=== PATIENT | female | born 1975 | race African-American/Black ===

== ENCOUNTER 2017-01-07 09:36 | Outpatient (CLI) | payer MEDICARE, MEDICAID ==
[2017-01-07 11:14] LABS: BASOPHILS % (AUTO) 0.6 % (0.0-2.0); EOSINOPHILS % (AUTO) 0.7 % (0.0-3.0); LYMPHOCYTES % (AUTO) 30.7 % (20.0-45.0); MEAN CORPUSCULAR HEMOGLOBIN 33.3 PG (27.0-31.0); MEAN CORPUSCULAR HGB CONC 33.1 G/DL (32.0-36.0); MEAN CORPUSCULAR VOLUME 101 FL (80-99); MONOCYTES % (AUTO) 5.9 % (1.0-10.0); NEUTROPHILS % (AUTO) 62.1 % (45.0-75.0); PLATELET COUNT 143 K/UL (150-450); RED BLOOD COUNT 3.76 M/UL (4.20-5.40); RED CELL DISTRIBUTION WIDTH 12.9 % (11.6-14.8); WHITE BLOOD COUNT 8.1 K/UL (4.8-10.8)
[2017-01-07 11:55] LABS: ALANINE AMINOTRANSFERASE 25 U/L (12-78); ALBUMIN/GLOBULIN RATIO 0.9 (1.0-2.7); ANION GAP 7 mmol/L (5-15); ASPARTATE AMINO TRANSFERASE 21 U/L (15-37); CARBON DIOXIDE 27 MMOL/L (21-32); CHLORIDE 103 MMOL/L (98-107); CREATININE 0.7 MG/DL (0.55-1.30); GLOMERULAR FILTRATION RATE > 60 mL/min (>60); POTASSIUM 4.1 MMOL/L (3.5-5.1); SODIUM 137 MMOL/L (136-145); TOTAL PROTEIN 7.8 G/DL (6.4-8.2); VALPROIC ACID 91 MCG/ML (50-100)
[2017-01-12 13:00] LABS: VITAMIN D 25-OH TOTAL 5.1 ng/mL (.)
== END 2017-01-07 11:36 | disposition home or self-care (01) ==
LOC: LAB 09:36
DX: G40.909 Epilepsy, unspecified, not intractable, without status epilepticus (principal)
CPT/HCPCS: 36415; 80053; 80164; 80184; 82306; 82607; 85025

== ENCOUNTER 2017-06-25 08:58 | Outpatient (CLI) | payer MEDICARE, OTHER ==
[2017-06-25 10:41] LABS: BASOPHILS % (AUTO) 1.3 % (0.0-2.0); EOSINOPHILS % (AUTO) 1.1 % (0.0-3.0); HEMOGLOBIN 12.4 G/DL (12.0-16.0); LYMPHOCYTES % (AUTO) 36.9 % (20.0-45.0); MEAN CORPUSCULAR VOLUME 92 FL (80-99); MONOCYTES % (AUTO) 8.1 % (1.0-10.0); NEUTROPHILS % (AUTO) 52.7 % (45.0-75.0); PLATELET COUNT 169 K/UL (150-450); RED BLOOD COUNT 4.11 M/UL (4.20-5.40); RED CELL DISTRIBUTION WIDTH 15.5 % (11.6-14.8); WHITE BLOOD COUNT 7.2 K/UL (4.8-10.8)
[2017-06-25 11:16] LABS: ALANINE AMINOTRANSFERASE 29 U/L (12-78); ALBUMIN 3.6 G/DL (3.4-5.0); ALBUMIN/GLOBULIN RATIO 0.9 (1.0-2.7); ALKALINE PHOSPHATASE 64 U/L (46-116); ANION GAP 6 mmol/L (5-15); ASPARTATE AMINO TRANSFERASE 27 U/L (15-37); BILIRUBIN,DIRECT < 0.1 MG/DL (0.0-0.3); BILIRUBIN,TOTAL 0.2 MG/DL (0.2-1.0); BLOOD UREA NITROGEN 10 mg/dL (7-18); CARBON DIOXIDE 31 MMOL/L (21-32); CHLORIDE 102 MMOL/L (98-107); CREATININE 0.5 MG/DL (0.55-1.30); POTASSIUM 4.3 MMOL/L (3.5-5.1); SODIUM 139 MMOL/L (136-145)
== END 2017-06-25 10:58 | disposition home or self-care (01) ==
LOC: LAB 08:58
DX: G40.909 Epilepsy, unspecified, not intractable, without status epilepticus (principal)
CPT/HCPCS: 36415; 80053; 80164; 80184; 82248; 82306; 82607; 84436; 84439; 84443; 84481; 85025

== ENCOUNTER 2018-01-01 06:53 | Outpatient (CLI) | payer MEDICARE, OTHER ==
[2018-01-01 11:20] LABS: BASOPHILS % (AUTO) 1.2 % (0.0-2.0); EOSINOPHILS % (AUTO) 1.9 % (0.0-3.0); HEMATOCRIT 35.5 % (37.0-47.0); HEMOGLOBIN 11.4 G/DL (12.0-16.0); LYMPHOCYTES % (AUTO) 33.7 % (20.0-45.0); MEAN CORPUSCULAR VOLUME 87 FL (80-99); NEUTROPHILS % (AUTO) 54.3 % (45.0-75.0); PLATELET COUNT 221 K/UL (150-450); RED BLOOD COUNT 4.09 M/UL (4.20-5.40); RED CELL DISTRIBUTION WIDTH 14.4 % (11.6-14.8); WHITE BLOOD COUNT 7.7 K/UL (4.8-10.8)
[2018-01-01 11:50] LABS: ALANINE AMINOTRANSFERASE 13 U/L (12-78); ALBUMIN 3.6 G/DL (3.4-5.0); ALBUMIN/GLOBULIN RATIO 0.7 (1.0-2.7); ALKALINE PHOSPHATASE 71 U/L (46-116); ANION GAP 9 mmol/L (5-15); ASPARTATE AMINO TRANSFERASE 16 U/L (15-37); BILIRUBIN,TOTAL < 0.1 MG/DL (0.2-1.0); BLOOD UREA NITROGEN 8 mg/dL (7-18); CALCIUM 9.1 MG/DL (8.5-10.1); CARBON DIOXIDE 26 MMOL/L (21-32); CHLORIDE 104 MMOL/L (98-107); CREATININE 0.6 MG/DL (0.55-1.30); POTASSIUM 4.1 MMOL/L (3.5-5.1); SODIUM 139 MMOL/L (136-145)
== END 2018-01-01 08:53 | disposition home or self-care (01) ==
LOC: LAB 06:53
DX: G40.909 Epilepsy, unspecified, not intractable, without status epilepticus (principal)
CPT/HCPCS: 36415; 80053; 80164; 80184; 82306; 82607; 84443; 85025

== ENCOUNTER 2018-03-23 10:07 | Emergency (ER) | payer MEDICARE, OTHER ==
[~2018-03-23] VITALS: Ht 152.4 cm; Wt 45.4 kg
--- NOTE | 2018-03-23 10:20 | NUR ---
ED Nurse Note: PT BROUGHT IN BY MOTHER VIA WHEELCHAIR FROM HOME. PT IS NONVERBAL WHICH IS BASELINE PER PT'S MOTHER. PT'S MOTHER STATES PT HAS FELT WARM THOUGH NO TEMPERATURE WAS TAKEN AT HOME. ORAL TEMP AT BEDSIDE: 99.6F. PT'S MOTHER ALSO STATES PT HAS BEEN MORE FATIGUED THAN NORMAL AND IS USUALLY MORE ACTIVE AT HOME.
--- NOTE | 2018-03-23 10:38 | Emergency Room Report ---
History of Present Illness General Chief Complaint: Fever Source: Caregiver Present Illness HPI 43-year-old femaleis nonverbal at baseline, wheelchair bound,and has developmental delay brought in by caregiver for subjective fever and fatigue noticed since yesterday, usually patient is more interactive, and now she seems have a scowl on her face. No temperatures were taken, but caregiver thinks that she just looks a little on comfortable and skin was warm. Allergies: Coded Allergies: No Known Allergies (Unverified , 03/23/18) Patient History Limited by: medical condition Past Medical History: see triage record Now: No Reviewed Nursing Documentation: PMH: Agreed; PSxH: Agreed Nursing Documentation-PMH Past Medical History: No History, Except For Hx Seizures: Yes Review of Systems All Other Systems: limited - Patient nonverbal Physical Exam Vital Signs Date Time Temp Pulse Resp B/P (MAP) Pulse Ox O2 Delivery O2 Flow Rate FiO2 03/23/18 10:15 99.7 109 22 124/77 99 Room Air Sp02 EP Interpretation: reviewed, normal General Appearance: no apparent distress, alert, non-toxic Head: normocephalic, atraumatic Eyes: bilateral eye normal inspection, bilateral eye PERRL, bilateral eye EOMI ENT: normal ENT inspection, moist mucus membranes Neck: normal inspection, full range of motion, supple, supple/symm/no masses Respiratory: chest non-tender, lungs clear, normal breath sounds, no rhonchi, no respiratory distress, no retraction, no accessory muscle use, chest symmetrical, palpation of chest normal Cardiovascular #1: normal peripheral pulses, regular rate, rhythm, no edema, no gallop, no JVD, no murmur, no rub Cardiovascular #2: 2+ radial (R), 2+ radial (L) Gastrointestinal: normal inspection, non tender, soft, no mass, no guarding, no rebound Rectal: deferred Genitourinary: normal inspection, no CVA tenderness Musculoskeletal: back normal, gait/station normal, normal range of motion, non- tender, no calf tenderness Neurologic: alert, responsive Psychiatric: mood/affect normal Skin: normal color, no rash, warm/dry, normal turgor Lymphatic: no adenopathy Medical Decision Making Diagnostic Impression: Primary Impression: Fever ER Course Patient sent in for subjective fever, but no fever here, labs, CT scan abdomen pelvis, urine, chest x-ray, all fairly unremarkable, patient with no obvious discomfort, will discharge home with PMD follow-up. Last Vital Signs Date Time Temp Pulse Resp B/P (MAP) Pulse Ox O2 Delivery O2 Flow Rate FiO2 03/23/18 10:15 99.7 109 22 124/77 99 Room Air Disposition: HOME, SELF-CARE Condition: Stable AVERY RILEY M.D Mar 23, 2018 10:38
[2018-03-23] MEDS ORDERED: LORazepam 1mg tab ORAL ONE (10:45)
[2018-03-23 10:47] VITALS: BP 117/81
--- NOTE | 2018-03-23 11:02 | NUR ---
ED Nurse Note: UNABLE TO DRAW BLOOD, CONTACTED FURNACE CONVERTER TO DRAW. NOTIFIED ANDRY KHAN
--- NOTE | 2018-03-23 11:30 | NUR ---
ED Nurse Note: PT TO CT VIA ANUPAMA.
[2018-03-23 11:34] LABS: EOSINOPHILS % (AUTO) 0.6 % (0.0-3.0); HEMATOCRIT 34.7 % (37.0-47.0); LYMPHOCYTES % (AUTO) 27.1 % (20.0-45.0); MEAN CORPUSCULAR VOLUME 88 FL (80-99); MONOCYTES % (AUTO) 7.9 % (1.0-10.0); NEUTROPHILS % (AUTO) 63.5 % (45.0-75.0); PLATELET COUNT 145 K/UL (150-450); RED BLOOD COUNT 3.93 M/UL (4.20-5.40); RED CELL DISTRIBUTION WIDTH 16.9 % (11.6-14.8); WHITE BLOOD COUNT 9.8 K/UL (4.8-10.8)
--- NOTE | 2018-03-23 11:35 | NUR ---
ED Nurse Note: Patient's mom - Apodaca Andrea / & TEL [phone]
[2018-03-23 11:40] LABS: ANION GAP 9 mmol/L (5-15); BLOOD UREA NITROGEN 5 mg/dL (7-18); CALCIUM 8.6 MG/DL (8.5-10.1); CARBON DIOXIDE 28 MMOL/L (21-32); CHLORIDE 103 MMOL/L (98-107); CREATININE 0.6 MG/DL (0.55-1.30); POTASSIUM 3.3 MMOL/L (3.5-5.1); SODIUM 140 MMOL/L (136-145)
--- NOTE | 2018-03-23 11:43 | NUR ---
ED Nurse Note: PT BACK FROM CT VIA ANUPAMA
[2018-03-23 11:45] LABS: ALANINE AMINOTRANSFERASE 43 U/L (12-78); ALBUMIN 3.4 G/DL (3.4-5.0); ALBUMIN/GLOBULIN RATIO 0.8 (1.0-2.7); ALKALINE PHOSPHATASE 68 U/L (46-116); ASPARTATE AMINO TRANSFERASE 25 U/L (15-37); BILIRUBIN,TOTAL 0.1 MG/DL (0.2-1.0)
--- NOTE | 2018-03-23 12:00 | NUR ---
ED Nurse Note: PER DR. RILEY, WILL CHANGE SERUM TO URINE.
--- NOTE | 2018-03-23 12:04 | Diagnostic Imaging Report ---
Indication: Dyspnea Comparison: 10/25/2008 A single view chest radiograph was obtained. Findings: There is a kyphosis and scoliosis of the thoracolumbar spine present. Heart size is within normal limits. Lung volumes are low bilaterally. No infiltrates are seen. IMPRESSION: No acute cardiopulmonary disease
[2018-03-23 12:09] LABS: APPEARANCE,URINE CLEAR; BILIRUBIN, URINE NEGATIVE (NEGATIVE); COLOR,URINE PALE YELLOW; GLUCOSE, URINE (UA) NEGATIVE (NEGATIVE); KETONES,URINE NEGATIVE (NEGATIVE); LEUKOCYTE ESTERASE ,URINE NEGATIVE (NEGATIVE); NITRITE,URINE NEGATIVE (NEGATIVE); PH,URINE 7 (4.5-8.0); PROTEIN,URINE NEGATIVE (NEGATIVE); UROBILINOGEN,URINE NORMAL MG/DL (0.0-1.0)
--- NOTE | 2018-03-23 12:41 | Diagnostic Imaging Report ---
Indication: Abdominal pain Technique: Continuous helical transaxial imaging of the abdomen and pelvis was obtained from the lung bases to the pubic symphysis. No intravenous contrast was administered. Coronal 2-D reformats were also obtained. Automatic Exposure Control was utilized. Total Dose length Product (DLP): 468.[address] Dose Index Volume (CTDIvol): 8.83 mGy Comparison: none Findings: The lung bases are clear. There is a moderate to severe scoliosis of the thoracolumbar spine convex to the right. Gallbladder is partially contracted. There is suggestion of small stones or sludge layering in the dependent part of the gallbladder. There is significant limitation on this examination due to the nonadministration of intravenous and oral contrast material and fact that the patient has a unique body habitus with very little intra-abdominal fat much like a pediatric patient. There is no obvious ascites or evidence of intra-abdominal/pelvic abscess. There is no evidence of bowel obstruction. The appendix is partially seen and appears probably normal. Uterus is present. There is moderate fecal impaction with formed stool distending the rectum. The bladder is unremarkable. There is no hydronephrosis or renal stones identified. 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 The left femoral head and neck are displaced superolaterally. This is chronic. This is associated with some redundancy of the joint capsule which appears moderately thick and expanded. There is a small joint effusion. IMPRESSION: No acute findings in the abdomen or pelvis identified. Limitations as discussed above. Severe kyphoscoliosis. 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 Moderate fecal impaction. Gallbladder sludge versus small stones. The CT scanner at [facility] is accredited by the [employer] and the scans are performed using dose optimization techniques as appropriate to a performed exam including Automatic Exposure control.
[2018-03-23] MEDS ORDERED: COLACE100 MG ORAL (13:23)
--- NOTE | 2018-03-23 13:50 | NUR ---
ED Nurse Note: PT'S MOTHER CALLED FOR DC. ETA 20 MINUTES.
--- NOTE | 2018-03-23 14:07 | NUR ---
ED Nurse Note: PT'S K: 3.3. AWARE. PT CLEARED FOR DC.
[2018-03-23 14:26] VITALS: BP 119/84
--- NOTE | 2018-03-23 14:26 | NUR ---
Ed Nurse Note: PT LAYING PEACEFULLY IN BED IN NAD. AOX4. MOTHER AT BEDSIDE. PRESCRIPTIONS AND DISCHARGE PAPERWORK EXPLAINED TO PT'S MOTHER. PT'S MOTHER VERBALIZES UNDERSTANDING AND ALL QUESTIONS WERE ANSWERED. PRESCRIPTIONS AND DISCHARGE PAPERWORK GIVEN TO PT'S MOTHER, IV AND ID WRISTBAND REMOVED. PT WHEELCHAIRED OUT OF ER WITH ALL BELONGINGS BY MOTHER.
== END 2018-03-23 14:26 | disposition home or self-care (01) ==
LOC: EMR 10:55
DX: R50.9 Fever, unspecified (principal); R10.9 Unspecified abdominal pain; R06.00 Dyspnea, unspecified
CPT/HCPCS: 36415; 71045; 74176; 80053; 81003; 81025; 83690; 84484; 85025; 85610; 85730; 96360; 99284

== ENCOUNTER 2018-05-09 14:10 | Inpatient (IN) | payer MEDICARE, OTHER ==
[~2018-05-09] VITALS: Ht 162.6 cm; Wt 40.8 kg
[~2018-05-09 14:10] MED LIST: COLACE100 MG ORAL
[2018-05-10] MEDS ORDERED: LEVOTHYROXINE75 MCG ORAL (10:16)
[2018-05-10] MEDS ORDERED: PHENOBARBITAL30 MG ORAL (10:16)
[2018-05-10] MEDS ORDERED: VITAMIN D250000 UNI1 ORAL (10:16)
[2018-05-10] MEDS ORDERED: DEPAKOTE250 MG PO (10:16)
--- NOTE | 2018-05-10 10:52 | NUR ---
NURSE NOTES: Patient is a direct admit. Patient arrived to unit at 1010 via own wheelchair. Patient is non-verbal. History obtained from mother at bedside. Patient assisted to bed. Mother took patient's clothes home, so patient has no belongings. Side rails are up X3. Side rails are padded. Bed is locked and in lowest position. Dr. Nair called for admission orders. New orders received and entered. Will continue to monitor.
[2018-05-10 11:54] LABS: BASOPHILS % (AUTO) 0.9 % (0.0-2.0); EOSINOPHILS % (AUTO) 0.4 % (0.0-3.0); HEMATOCRIT 34.6 % (37.0-47.0); HEMOGLOBIN 10.8 G/DL (12.0-16.0); LYMPHOCYTES % (AUTO) 33.5 % (20.0-45.0); MEAN CORPUSCULAR VOLUME 89 FL (80-99); MONOCYTES % (AUTO) 5.8 % (1.0-10.0); NEUTROPHILS % (AUTO) 59.4 % (45.0-75.0); PLATELET COUNT 175 K/UL (150-450); RED BLOOD COUNT 3.89 M/UL (4.20-5.40); RED CELL DISTRIBUTION WIDTH 16.9 % (11.6-14.8); WHITE BLOOD COUNT 8.7 K/UL (4.8-10.8)
[2018-05-10 12:00] VITALS: BP 111/58
[2018-05-10 12:29] LABS: ALANINE AMINOTRANSFERASE 31 U/L (12-78); ALBUMIN 3.4 G/DL (3.4-5.0); ALBUMIN/GLOBULIN RATIO 0.8 (1.0-2.7); ALKALINE PHOSPHATASE 57 U/L (46-116); ANION GAP 3 mmol/L (5-15); ASPARTATE AMINO TRANSFERASE 17 U/L (15-37); BILIRUBIN,TOTAL < 0.1 MG/DL (0.2-1.0); BLOOD UREA NITROGEN 10 mg/dL (7-18); CALCIUM 8.8 MG/DL (8.5-10.1); CARBON DIOXIDE 30 MMOL/L (21-32); CHLORIDE 101 MMOL/L (98-107); CREATININE 0.7 MG/DL (0.55-1.30); POTASSIUM 4.3 MMOL/L (3.5-5.1); SODIUM 134 MMOL/L (136-145)
[2018-05-10 16:00] VITALS: BP 106/47
--- NOTE | 2018-05-10 16:40 | NUR ---
NURSE NOTES: IV inserted on Left hand 22 g.
--- NOTE | 2018-05-10 17:42 | NUR ---
NURSE NOTES: Unable to get urine sample. Patient too contracted and patient is incontinent.
--- NOTE | 2018-05-10 17:46 | NUR ---
NURSE NOTES: Unable to get urine sample. Dr. Chavis notified.
--- NOTE | 2018-05-10 19:23 | NUR ---
NURSE NOTES:Patient received from LOKESH Goode Patient in lying in bed LH g22 NS AT 75 CC/HR infusing well . no s/s of distress noted seizure precaution side rails padded . fall precaution maintained . call light within reach . bed in low position at all times . will continue to monitor.
--- NOTE | 2018-05-10 19:23 | NUR ---
HAND-OFF: Report given to RAMAN Murphy.
[2018-05-10 20:00] VITALS: BP 148/78
[2018-05-10] MEDS ORDERED: NS 500ML ONE (20:17)
[2018-05-10] MEDS: PHENobarbital 32.4mg tab ORAL SCH (22:14)
[2018-05-10] MEDS: Depakote 500mg tab ORAL SCH (22:15)
[2018-05-10] MEDS: Heparin 5000 units/ml inj SUBQ SCH (22:16)
[2018-05-11] VITALS: BP 144/78
[2018-05-11 04:00] VITALS: BP 132/77
--- NOTE | 2018-05-11 07:53 | NUR ---
HAND-OFF: Report given to Jud Webster
[2018-05-11 08:00] VITALS: BP 106/70
--- NOTE | 2018-05-11 08:30 | NUR ---
NURSE NOTES: Patient lying in bed sleeping. No signs and symptoms of pain or distress at this time. IV dressing intact and dry. Bed lowest position. Side rails pad. Call light within reach. Will continue to monitor.
[2018-05-11] MEDS: Depakote 500mg tab ORAL SCH ×2 (08:42→21:39)
[2018-05-11] MEDS: PHENobarbital 32.4mg tab ORAL SCH ×2 (08:42→21:39)
[2018-05-11] MEDS: Heparin 5000 units/ml inj SUBQ SCH ×2 (08:43→21:46)
--- NOTE | 2018-05-11 09:17 | General Progress Note ---
Assessment/Plan Problem List: (1) Hyponatremia ICD Codes: E87.1 - Hypo-osmolality and hyponatremia SNOMED: 75238072 (2) Constipation ICD Codes: K59.00 - Constipation, unspecified SNOMED: 83086261 (3) Seizures ICD Codes: R56.9 - Unspecified convulsions SNOMED: 66882806 Status: stable Assessment/Plan cont current rx iv hydration repeat Na level cont sz meds check VPA level Subjective ROS Limited/Unobtainable: No Constitutional: Reports: malaise, weakness HEENT: Reports: no symptoms Cardiovascular: Reports: no symptoms Respiratory: Reports: no symptoms Gastrointestinal/Abdominal: Reports: no symptoms Genitourinary: Reports: no symptoms Neurologic/Psychiatric: Reports: pre-existing deficit, seizure Endocrine: Reports: no symptoms Hematologic/Lymphatic: Reports: no symptoms Allergies: Coded Allergies: No Known Allergies (Unverified , 03/23/18) All Systems: reviewed and negative except above Subjective remains more confused than baseline. low Na noted. Objective Last 24 Hour Vital Signs Date Time Temp Pulse Resp B/P (MAP) Pulse Ox O2 Delivery O2 Flow Rate FiO2 05/11/18 04:00 97.7 75 18 132/77 (95) 99 05/11/18 00:00 98.2 77 18 144/78 (100) 99 05/10/18 21:00 Room Air 05/10/18 20:00 97.9 78 18 148/78 (101) 99 05/10/18 16:00 98.2 73 18 106/47 (66) 100 05/10/18 12:00 98.8 78 18 111/58 (75) 100 05/10/18 10:36 Room Air Intake and Output 05/10/18 05/11/18 19:00 07:00 Intake Total 575 ml 955 ml Balance 575 ml 955 ml Intake Oral 500 ml 280 ml IV Total 75 ml 675 ml # Voids 2 5 # Bowel Movements 1 Laboratory Tests 05/10/18 11:45: White Blood Count 8.7, Red Blood Count 3.89L, Hemoglobin 10.8L, Hematocrit 34.6L , Mean Corpuscular Volume 89, Mean Corpuscular Hemoglobin 27.9, Mean Corpuscular Hemoglobin Concent 31.3L, Red Cell Distribution Width 16.9H, Platelet Count 175, Mean Platelet Volume 8.7, Neutrophils (%) (Auto) 59.4, Lymphocytes (%) (Auto) 33.5, Monocytes (%) (Auto) 5.8, Eosinophils (%) (Auto) 0.4, Basophils (%) (Auto) 0.9, Sodium Level 134L, Potassium Level 4.3, Chloride Level 101, Carbon Dioxide Level 30, Anion Gap 3L, Blood Urea Nitrogen 10, Creatinine 0.7, Estimat Glomerular Filtration Rate > 60, Glucose Level 83, Calcium Level 8.8, Total Bilirubin < 0.1L, Aspartate Amino Transf (AST/SGOT) 17 , Alanine Aminotransferase (ALT/SGPT) 31, Alkaline Phosphatase 57, Total Protein 7.5, Albumin 3.4, Globulin 4.1, Albumin/Globulin Ratio 0.8L, Thyroid Stimulating Hormone (TSH) 1.925 Height (Feet): 5 Height (Inches): 4.00 Weight (Pounds): 90 General Appearance: WD/WN, alert Neck: supple Cardiovascular: normal rate, regular rhythm Respiratory/Chest: chest wall non-tender, lungs clear, normal breath sounds Abdomen: normal bowel sounds, non tender, soft, no organomegaly Edema: no edema noted Arm (L), no edema noted Arm (R), no edema noted Leg (L), no edema noted Leg (R), no edema noted Pedal (L), no edema noted Pedal (R), no edema noted Generalized Neurologic: alert Suresh Chavis MD May 11, 2018 09:17
[2018-05-11 12:00] VITALS: BP 97/68
--- NOTE | 2018-05-11 12:06 | NUR ---
RD ASSESSMENT & RECOMMENDATIONS SEE CARE ACTIVITY FOR COMPLETE ASSESSMENT DAILY ESTIMATED NEEDS: Needs based on Underweight/ 40.8kg 30-35 kcals/kg 8149-3706 total kcals 1-1.5 g protein/kg 41-62 g total protein 25-30 mL/kg 8244-5695 total fluid mLs NUTRITION DIAGNOSIS: * Increased kcal/prot needs R/T underweight status as evidenced by pt % 90% IBW, low BMI per guidelines. CURRENT DIET:SOFT PO DIET RECOMMENDATIONS: REGULAR/ texture as tolerated ADDITIONAL RECOMMENDATIONS: * Txr pt to bed w/ calibrated bedscale, obtain accurate CBW * Snacks BID in b/w meals * Ensure Enlive 1 bottle daily w/ fair oral intake (350kcal/20g prot per bottle)
--- NOTE | 2018-05-11 15:00 | History and Physical Report ---
DATE OF ADMISSION: 05/10/2018 HISTORY OF PRESENT ILLNESS: The patient is a 43-year-old female. She has a history of intellectual developmental disorder, seizure disorder, hypothyroidism, and vitamin D deficiency, who presented with complaints of worsening confusion. According to the patient's mother, the patient has been more confused and agitated. She denies any seizures. According to the mother, this is a significant change from her baseline. The patient is unable to provide any history. There are no reports of any fevers or chills. There has been no falls. PAST MEDICAL HISTORY: As above. PAST SURGICAL HISTORY: None. CURRENT MEDICATIONS: Reconciled and reviewed. ALLERGIES: None. FAMILY HISTORY: None. SOCIAL HISTORY: There is no known history of tobacco, ethanol, or drugs. REVIEW OF SYSTEMS: Unobtainable from the patient. PHYSICAL EXAMINATION: VITAL SIGNS: Temperature 99.7 degrees, pulse 109, respirations 22, and blood pressure 124/77. GENERAL: The patient is well developed, in no apparent distress. HEART: Regular rate and rhythm. LUNGS: Clear. ABDOMEN: Soft, nontender, and nondistended. EXTREMITIES: Without clubbing, cyanosis, or edema. LABORATORY DATA: White count was 8, hemoglobin 10, and hematocrit 34. Sodium 134, potassium 4.3. TSH was 1.9. ASSESSMENT: This is a 43-year-old female with history of intellectual developmental disorder admitted with some altered mental status. She is noted to be slightly hyponatremic. This might account for the patient's confusion. Unfortunately, the patient has been unable to give a urine. There are no reports of any seizures. PLAN: IV hydration with normal saline. Try to obtain a urine. Monitor for seizures. Check a valproic acid level. Suresh Chavis M.D. DR: MACARENA JOB#: [id number] CC:
[2018-05-11 16:00] VITALS: BP 83/57
--- NOTE | 2018-05-11 16:18 | NUR ---
CASE MANAGEMENT:REVIEW 43 YR OLD DEVELOPMENTALLY DELAYED FEMALE DIRECTLY ADMITTED TO MED/SURG SI: HYPONATREMIA. CONSTIPATION SEIZURE 98.8 78 18 111/58 100% ON RA H/H-10.8/34.6 NA-134 IS: IVF@75/HR HEPARIN SQ Q12 PHENOBARBITAL PO Q12 DEPAKOTE PO Q12 : MED/SURG STATUS 3 EAST interqual
--- NOTE | 2018-05-11 17:25 | NUR ---
NURSE NOTES: Spoke to regarding blood pressure. New order received. Order read back and carried out. Will continue to monitor.
--- NOTE | 2018-05-11 19:45 | NUR ---
NURSE NOTES: Received report from ESTEFANIA Mc. Received patient lying in bed awake, confused. No signs of pain or distress noted. IV L FA patent and intact. Bed lowest position. Side rails up x 3 and padded. Call light within reach. Will continue to monitor.
--- NOTE | 2018-05-11 19:45 | NUR ---
HAND-OFF: Report given to Daus RN. Patient in stable condition.
[2018-05-11 20:00] VITALS: BP 120/71
[2018-05-12] VITALS: BP_SYST 108; BP_SYST 124; BP_DIAS 68; BP_DIAS 71
--- NOTE | 2018-05-12 01:43 | Physician Query ---
--------- THIS DOCUMENT IS A PERMANENT PART OF THE MEDICAL RECORD --------- PLEASE COMPLETE DOCUMENT BEFORE SIGNING Hanna Kulkarni Date: Fans Clerk/CDS Name: Fans Clerk / CDS Phone # Exercise your independent professional judgment when responding to query. Question asked do not imply a particular answer is desired/expected. Clinical Documentation States: "who presented with complaints of worsening confusion. According to the patient 's mother, the patient has been more confused and agitated. " -- documented in H&P "Hyponatremia" --documented in H&P Clinical Findings Show: Sodium (Na) = 134 mmol/l Please indicate the nature and chronicity of the condition below: [] Metabolic Encephalopathy [] Toxic Encephalopathy [] Toxic - Metabolic Encephalopathy [] Progressive Encephalopathy [x] Encephalopathy, Other seizures [] Other: [] Not Applicable Severity [] Acute [] Chronic [x] Acute on Chronic [] Unable to determine Condition Present on Admission: [x] Yes [] No []Clinically Undeterminable Please also document in your Progress Notes and/or Discharge Summary and indicate if the condition was present on admission. MICKY DUNCAN M.D. [facility]
[2018-05-12 04:00] VITALS: BP 96/52
[2018-05-12] MEDS: Levothyroxine 25mcg tab ORAL SCH (06:00)
--- NOTE | 2018-05-12 07:31 | NUR ---
HAND-OFF: Report given to ESTEFANIA Mc. Pt in stable condition.
[2018-05-12 07:33] LABS: ANION GAP 11 mmol/L (5-15); BLOOD UREA NITROGEN 13 mg/dL (7-18); CALCIUM 8.9 MG/DL (8.5-10.1); CARBON DIOXIDE 24 MMOL/L (21-32); CHLORIDE 105 MMOL/L (98-107); CREATININE 0.8 MG/DL (0.55-1.30); POTASSIUM 4.7 MMOL/L (3.5-5.1); SODIUM 140 MMOL/L (136-145)
--- NOTE | 2018-05-12 07:35 | NUR ---
NURSE NOTES: Patient lying in bed awake. No signs and symptoms of pain or distress at this time. Skin intact and dry. IV dressing intact and dry. Bed lowest position. Side rails pad. Call light within reach. Will continue to monitor.
[2018-05-12 08:00] VITALS: BP 100/61
[2018-05-12] MEDS: Depakote 500mg tab ORAL SCH ×2 (08:28→21:32)
[2018-05-12] MEDS: PHENobarbital 32.4mg tab ORAL SCH ×2 (08:28→21:32)
[2018-05-12] MEDS: Heparin 5000 units/ml inj SUBQ SCH ×2 (08:29→21:33)
[2018-05-12 12:00] VITALS: BP 105/68
--- NOTE | 2018-05-12 15:59 | General Progress Note ---
Assessment/Plan Problem List: (1) Hyponatremia ICD Codes: E87.1 - Hypo-osmolality and hyponatremia SNOMED: 19903192 (2) Constipation ICD Codes: K59.00 - Constipation, unspecified SNOMED: 59053060 (3) Seizures ICD Codes: R56.9 - Unspecified convulsions SNOMED: 67564160 Status: stable, progressing Assessment/Plan cont current rx iv hydration monitor labs cont sz meds check VPA level Subjective Allergies: Coded Allergies: No Known Allergies (Unverified , 03/23/18) Subjective no events. w/o complaints. less confused. no szs. Objective Last 24 Hour Vital Signs Date Time Temp Pulse Resp B/P (MAP) Pulse Ox O2 Delivery O2 Flow Rate FiO2 05/12/18 12:00 97.9 86 18 105/68 (80) 97 05/12/18 09:00 Room Air 05/12/18 08:00 97.8 83 18 100/61 (74) 97 05/12/18 04:00 97.9 62 16 96/52 (67) 97 05/12/18 00:00 97.8 79 17 124/68 (86) 96 05/11/18 21:00 Room Air 05/11/18 20:00 98.0 75 18 120/71 (87) 96 05/11/18 16:00 98.2 75 20 83/57 (66) 100 Intake and Output 05/11/18 05/12/18 18:59 06:59 Intake Total 575 ml 50 ml Balance 575 ml 50 ml Intake Oral 500 ml 50 ml IV Total 75 ml # Voids 3 2 Laboratory Tests 05/12/18 06:10: Sodium Level 140, Potassium Level 4.7, Chloride Level 105, Carbon Dioxide Level 24, Anion Gap 11, Blood Urea Nitrogen 13, Creatinine 0.8, Estimat Glomerular Filtration Rate > 60, Glucose Level 102, Calcium Level 8.9, Valproic Acid ( Depakene) Level 41L Height (Feet): 5 Height (Inches): 4.00 Weight (Pounds): 90 Objective General Appearance: WD/WN, alert Neck: supple Cardiovascular: normal rate, regular rhythm Respiratory/Chest: chest wall non-tender, lungs clear, normal breath sounds Abdomen: normal bowel sounds, non tender, soft, no organomegaly Edema: no edema noted Arm (L), no edema noted Arm (R), no edema noted Leg (L), no edema noted Leg (R), no edema noted Pedal (L), no edema noted Pedal (R), no edema noted Generalized Neurologic: alert Suresh Chavis MD May 12, 2018 15:59
[2018-05-12 16:00] VITALS: BP 110/70
--- NOTE | 2018-05-12 19:30 | NUR ---
HAND-OFF: Report given to Lawanda MAC. Patient in stable condition.
--- NOTE | 2018-05-12 19:31 | NUR ---
NURSE NOTES: Received report & pt from Alexandro Jones RN. Pt lying in bed, non-verbal, in room air. No s/s of acute distress & no s/s of pain at this time. B/L side rails padded for seizure precautions, no skin issues. IV site intact & S/L'd. Bed in lowest position, call light within reach. Will continue to monitor.
[2018-05-12 20:00] VITALS: BP 129/63
[2018-05-13] VITALS: BP 120/60
[2018-05-13 04:00] VITALS: BP 111/68
[2018-05-13] MEDS: Levothyroxine 25mcg tab ORAL SCH (06:04)
--- NOTE | 2018-05-13 07:16 | NUR ---
HAND-OFF: Report given to ESTEFANIA Mc.
--- NOTE | 2018-05-13 07:30 | NUR ---
NURSE NOTES: Patient lying in bed sleeping. No signs and symptoms of pain or distress at this time. Skin intact and dry. IV dressing intact and dry. Side rails pad. Bed lowest position. Call light within reach. Will continue to monitor.
[2018-05-13 08:00] VITALS: BP 108/68
[2018-05-13] MEDS: PHENobarbital 32.4mg tab ORAL SCH (08:36)
[2018-05-13] MEDS: Depakote 500mg tab ORAL SCH (08:37)
[2018-05-13] MEDS: Heparin 5000 units/ml inj SUBQ SCH (08:38)
[2018-05-13 12:00] VITALS: BP 97/71
--- NOTE | 2018-05-13 13:35 | NUR ---
NURSE NOTES: Patient discharged with family member in stable condition. Discharge instruction given to family member and verbalized understanding. Belonging given to family member. IV and ID removed. Brought down to private car by wheelchair.
--- NOTE | 2018-05-13 21:16 | Discharge Summary ---
DATE OF ADMISSION: 05/10/2018 DATE OF DISCHARGE: 05/13/2018 ADMISSION DIAGNOSES: 1. Toxic metabolic encephalopathy. 2. Seizure disorder. 3. Hyponatremia. DISCHARGE DIAGNOSES: 1. Toxic metabolic encephalopathy. 2. Seizure disorder. 3. Hyponatremia. HOSPITAL COURSE: The patient is a 43-year-old female with a history of seizure disorder and intellectual developmental disorder, who was admitted with complaints of worsened altered mental status. There was initially concern for seizures. Valproic acid level was slightly low, but there were no observed seizures. She was noted to be hyponatremic. She received normal saline with improvement in her sodium. On discharge, she was stable. She will be discharged home with her family. Family is instructed to increase her valproic acid medications and have her level rechecked as an outpatient. DISCHARGE MEDICATIONS: Please see discharge medication list for discharge medications. DIET: Regular. ACTIVITIES: Ad-caren. FOLLOWUP: The patient will follow up in the office in one to two months. Suresh Chavis M.D. DR: ROSALBA JOB#: [id number] CC:
[2018-05-14] MEDS ORDERED: Vitamin D 50,000 units cap ORAL SCH (09:00)
== END 2018-05-13 13:40 | disposition home or self-care (01) | DRG 640 ==
LOC: 3E 05-10 09:35
DX: E87.1 Hypo-osmolality and hyponatremia (principal); G92 Toxic encephalopathy; G40.909 Epilepsy, unspecified, not intractable, without status epilepticus; K59.00 Constipation, unspecified; E03.9 Hypothyroidism, unspecified; E55.9 Vitamin D deficiency, unspecified; F81.9 Developmental disorder of scholastic skills, unspecified
CPT/HCPCS: 36415; 80048; 80053; 80164; 84443; 85025

== ENCOUNTER 2018-05-19 12:34 | Outpatient (CLI) | payer MEDICARE, OTHER ==
[~2018-05-19 12:34] MED LIST changes: +DEPAKOTE250 MG PO; +LEVOTHYROXINE75 MCG ORAL; +PHENOBARBITAL30 MG ORAL; +VITAMIN D250000 UNI1 ORAL
[2018-05-19 13:57] LABS: BASOPHILS % (AUTO) 1.2 % (0.0-2.0); HEMATOCRIT 35.5 % (37.0-47.0); HEMOGLOBIN 11.2 G/DL (12.0-16.0); LYMPHOCYTES % (AUTO) 40.7 % (20.0-45.0); MEAN CORPUSCULAR VOLUME 90 FL (80-99); MONOCYTES % (AUTO) 6.9 % (1.0-10.0); NEUTROPHILS % (AUTO) 50.2 % (45.0-75.0); PLATELET COUNT 198 K/UL (150-450); RED BLOOD COUNT 3.94 M/UL (4.20-5.40); RED CELL DISTRIBUTION WIDTH 17.3 % (11.6-14.8); WHITE BLOOD COUNT 7.8 K/UL (4.8-10.8)
[2018-05-19 14:13] LABS: ALANINE AMINOTRANSFERASE 30 U/L (12-78); ALBUMIN 3.8 G/DL (3.4-5.0); ALBUMIN/GLOBULIN RATIO 0.9 (1.0-2.7); ALKALINE PHOSPHATASE 59 U/L (46-116); ANION GAP 9 mmol/L (5-15); ASPARTATE AMINO TRANSFERASE 15 U/L (15-37); BILIRUBIN,TOTAL 0.2 MG/DL (0.2-1.0); BLOOD UREA NITROGEN 10 mg/dL (7-18); CALCIUM 9.1 MG/DL (8.5-10.1); CARBON DIOXIDE 27 MMOL/L (21-32); CHLORIDE 102 MMOL/L (98-107); CREATININE 0.7 MG/DL (0.55-1.30); POTASSIUM 4.1 MMOL/L (3.5-5.1); SODIUM 138 MMOL/L (136-145)
== END 2018-05-19 14:34 | disposition home or self-care (01) ==
LOC: LAB 12:34
DX: G40.909 Epilepsy, unspecified, not intractable, without status epilepticus (principal)
CPT/HCPCS: 36415; 80053; 80164; 80184; 82306; 82607; 84443; 85025

== ENCOUNTER 2018-10-08 07:29 | Outpatient (CLI) | payer MEDICARE, OTHER ==
[2018-10-08 08:15] LABS: BASOPHILS % (AUTO) 1.4 % (0.0-2.0); HEMATOCRIT 33.8 % (37.0-47.0); HEMOGLOBIN 10.4 G/DL (12.0-16.0); LYMPHOCYTES % (AUTO) 34.4 % (20.0-45.0); MEAN CORPUSCULAR VOLUME 89 FL (80-99); MONOCYTES % (AUTO) 6.8 % (1.0-10.0); NEUTROPHILS % (AUTO) 56.5 % (45.0-75.0); PLATELET COUNT 223 K/UL (150-450); RED BLOOD COUNT 3.81 M/UL (4.20-5.40); RED CELL DISTRIBUTION WIDTH 16.9 % (11.6-14.8); WHITE BLOOD COUNT 8.2 K/UL (4.8-10.8)
[2018-10-08 08:39] LABS: ALANINE AMINOTRANSFERASE 16 U/L (12-78); ALBUMIN 3.7 G/DL (3.4-5.0); ALBUMIN/GLOBULIN RATIO 0.9 (1.0-2.7); ALKALINE PHOSPHATASE 54 U/L (46-116); ANION GAP 6 mmol/L (5-15); ASPARTATE AMINO TRANSFERASE 11 U/L (15-37); BILIRUBIN,TOTAL 0.2 MG/DL (0.2-1.0); BLOOD UREA NITROGEN 12 mg/dL (7-18); CALCIUM 8.7 MG/DL (8.5-10.1); CARBON DIOXIDE 25 MMOL/L (21-32); CHLORIDE 107 MMOL/L (98-107); CREATININE 0.7 MG/DL (0.55-1.30); POTASSIUM 3.8 MMOL/L (3.5-5.1); SODIUM 138 MMOL/L (136-145)
== END 2018-10-08 09:29 | disposition home or self-care (01) ==
LOC: LAB 07:29
DX: G40.909 Epilepsy, unspecified, not intractable, without status epilepticus (principal)
CPT/HCPCS: 36415; 80053; 80164; 80184; 82306; 82607; 84443; 85025

== ENCOUNTER → 2019-12-27 | Outpatient (CLI) | payer MEDICARE, OTHER ==
[2019-12-27 10:05] LABS: BASOPHILS % (AUTO) 1.3 % (0.0-2.0); EOSINOPHILS % (AUTO) 1.2 % (0.0-3.0); HEMATOCRIT 33.3 % (37.0-47.0); HEMOGLOBIN 10.9 G/DL (12.0-16.0); LYMPHOCYTES % (AUTO) 27.7 % (20.0-45.0); MEAN CORPUSCULAR VOLUME 90 FL (80-99); NEUTROPHILS % (AUTO) 63.8 % (45.0-75.0); PLATELET COUNT 193 K/UL (150-450); RED BLOOD COUNT 3.69 M/UL (4.20-5.40); WHITE BLOOD COUNT 9.6 K/UL (4.8-10.8)
[2019-12-27 10:32] LABS: ALANINE AMINOTRANSFERASE 22 U/L (12-78); ALBUMIN 3.6 G/DL (3.4-5.0); ALBUMIN/GLOBULIN RATIO 0.8 (1.0-2.7); ALKALINE PHOSPHATASE 55 U/L (46-116); ANION GAP 5 mmol/L (5-15); ASPARTATE AMINO TRANSFERASE 18 U/L (15-37); BILIRUBIN,TOTAL 0.2 MG/DL (0.2-1.0); BLOOD UREA NITROGEN 12 mg/dL (7-18); CALCIUM 8.5 MG/DL (8.5-10.1); CARBON DIOXIDE 29 MMOL/L (21-32); CHLORIDE 103 MMOL/L (98-107); CREATININE 0.7 MG/DL (0.55-1.30); POTASSIUM 3.8 MMOL/L (3.5-5.1); SODIUM 137 MMOL/L (136-145)
== END | disposition home or self-care (01) ==
LOC: LAB 08:44
DX: G40.219 Localization-related (focal) (partial) symptomatic epilepsy and epileptic syndromes with complex partial seizures, intractable, without status epilepticus (principal)
CPT/HCPCS: 36415; 80053; 80164; 80184; 82306; 82607; 84443; 85025